=== PATIENT | female | born 1965 | race Caucasian/White ===

== ENCOUNTER 2021-05-08 12:34 | Outpatient (CLI) | payer BC ==
--- NOTE | 2021-05-08 16:07 | XRAY Report ---
PROCEDURE: Knee 3 View RT INDICATIONS: STRAIN OF MUSCLES, AND TENDON OF R LOWER LEG TECHNIQUE: 3 views of the right knee(s) were acquired. COMPARISON: None. FINDINGS: Bones: No fractures or dislocations. No suspicious bony lesions. Vzhj-bz-vohyncvm tricompartmental osteoarthritis. Soft tissues: No joint effusion. No suspicious soft tissue calcifications. IMPRESSION: Right knee leij-[id number]-[id number] tricompartmental osteoarthritis. Reviewed by: Thais Abdi MD, PhD on 05/08/2021 4:06 PM PST Approved by: Thais Abdi MD, PhD on 05/08/2021 4:06 PM PST Station ID: [id number]
== END 2021-05-08 23:59 | disposition home or self-care (01) ==
LOC: DI.N 12:34
PROVIDERS: ATTEND Physician Assistant Medical
DX: S86.911D Strain of unspecified muscle(s) and tendon(s) at lower leg level, right leg, subsequent encounter (principal); M17.11 Unilateral primary osteoarthritis, right knee